=== PATIENT | male | born 1975 | race Caucasian/White ===

== ENCOUNTER 2024-06-04 12:48 | Inpatient (IN) | payer OTHER ==
[2024-06-04 13:05] VITALS: BMI 36.5
[2024-06-04] MEDS ORDERED: BENZOCAINE/MENTHOL (CHLORASEPTIC ) LOZENGE MM PRN (14:27)
[2024-06-04] MEDS ORDERED: LOPERAMIDE HCL 2 MG CAPSULE PO PRN (14:27)
[2024-06-04] MEDS ORDERED: POLYETHYLENE GLYCOL (HEALTHYLAX) 3350 17 GM PACKET PO PRN (14:27)
[2024-06-04] MEDS ORDERED: MAG HYDROX/AL HYDROX/SIMETH 30 ML UNIT-DOSE CUP PO PRN (14:27)
[2024-06-04] MEDS ORDERED: MAGNESIUM HYDROX 2400MG/30ML ORAL SUSPENSION 30 ML CUP PO PRN (14:27)
[2024-06-04] MEDS ORDERED: IBUPROFEN 400 MG TABLET (FP) PO PRN (14:27)
[2024-06-04] MEDS ORDERED: NALOXONE HCL 0.4 MG/ML VIAL IM PRN (14:27)
[2024-06-04] MEDS ORDERED: hydrOXYzine PAMOATE 25 MG CAPSULE (FP) PO PRN (14:27)
[2024-06-04] MEDS ORDERED: guaiFENesin 600 MG TABLET.ER (FP) PO PRN (14:27)
[2024-06-04] MEDS ORDERED: ACETAMINOPHEN 325 MG TABLET (FP) PO PRN (14:27)
[2024-06-04] MEDS ORDERED: BENZONATATE 200 MG CAPSULE PO PRN (14:27)
[2024-06-04] MEDS ORDERED: NALOXONE (NARCAN) HCL 4 MG/0.1 ML SPRAY NS PRN (14:27)
[2024-06-04] MEDS ORDERED: IBUPROFEN 600 MG TABLET (FP) PO PRN (14:27)
[2024-06-04] MEDS ORDERED: PRENATAL VITAMINS W/ FOLIC ACID TABLET (FP) PO ONE (16:07)
[2024-06-04] MEDS: PRENATAL VITAMINS W/ FOLIC ACID TABLET (FP) PO SCH (16:08)
[2024-06-04] MEDS: THIAMINE 100 MG TABLET PO SCH (22:31)
[2024-06-04] MEDS: MELATONIN 5 MG TABLETS PO SCH (22:31)
[2024-06-05] MEDS: NICOTINE 21 MG/24 HOURS TOPICAL PATCH TD SCH (09:50)
[2024-06-05] MEDS: OLANZapine 5 MG TABLET PO SCH (09:51)
[2024-06-05 11:36] LABS: HEMATOCRIT 42.5 % (35.4-49); HEMOGLOBIN 13.9 GM/dL (11.7-16.9); MCH 29.3 pg (25.7-33.7); MCHC 32.8 g/dl (32.0-35.9); MEAN CELL VOLUME 89.3 fl (80-96); MEAN PLT VOLUME 8.1 fl (7.5-11.1); PLATELET COUNT 252 10^3/uL (134-434); RBC 4.77 M/mm3 (4.00-5.60); RDW 15.2 % (11.9-15.9); WHITE BLOOD COUNT 8.3 K/mm3 (4.0-10.0)
[2024-06-05 11:50] LABS: PH,URINE 6.5 (5.0-8.0); URINE APPEARANCE CLEAR; URINE BILIRUBIN NEGATIVE (NEGATIVE); URINE COLOR YELLOW; URINE GLUCOSE (UA) NEGATIVE (NEGATIVE); URINE KETONE NEGATIVE (NEGATIVE); URINE LEUK ESTERASE NEGATIVE (NEGATIVE); URINE NITRITE NEGATIVE (NEGATIVE); URINE PROTEIN NEGATIVE (NEGATIVE); URINE UROBILINOGEN 0.2 mg/dL (0.2-1.0)
[2024-06-05 11:56] LABS: CHLORIDE 106 mmol/L (98-107); POTASSIUM 4.6 mmol/L (3.5-5.1); SODIUM 140 mmol/L (136-145)
[2024-06-05 12:06] LABS: ALBUMIN 3.4 g/dl (3.4-5.0); BLOOD UREA NITROGEN 8.7 mg/dL (7-18); CALCIUM 9.1 mg/dL (8.5-10.1); GLUCOSE,RANDOM 112 mg/dL (74-106)
[2024-06-05 12:07] LABS: ANION GAP 6 mmol/L (4-13); CO2 28 mmol/L (21-32)
[2024-06-05 12:09] LABS: BILIRUBIN,TOTAL 0.7 mg/dL (0.2-1); CREATININE 0.8 mg/dL (0.55-1.3); SGOT/AST 19 U/L (15-37); SGPT/ALT 32 U/L (13-61); TOT PROT 6.5 g/dl (6.4-8.2)
[2024-06-05 12:11] LABS: ALK PHOS 46 U/L (45-117)
[2024-06-05 12:23] LABS: SYPHILIS W/ RPR CONF NON-REACTIVE (NONREACTIVE)
[2024-06-05 12:52] VITALS: TEMP 97.7
[2024-06-05] MEDS: HALOPERIDOL 5 MG TABLET PO SCH (14:08)
[2024-06-05] MEDS ORDERED: PATIENT'S OWN MEDICATION (NON-FORMULARY) (Etanercept [Enbrel] 50 MG/ML Syringe) SQ SCH (14:45)
[2024-06-05] MEDS: OLANZapine 10 MG TABLET PO SCH (21:30)
[2024-06-06 06:52] VITALS: PULSE 84; RESP 18
[2024-06-06 09:08] VITALS: BP 134/80
== END 2024-06-06 14:30 | disposition left against medical advice (07) | DRG 894 ==
LOC: YASAS 12:48 → Y3NR 16:17 → Y3W 06-05 12:33
PROVIDERS: ADMIT Allergy & Immunology; ATTEND Psychiatry & Neurology Pain Medicine
PROC: HZ42ZZZ Group Counseling for Substance Abuse Treatment, Cognitive-Behavioral (ICD-10-PCS; principal; 2024-06-04)
DX: F14.20 Cocaine dependence, uncomplicated (principal); F13.20 Sedative, hypnotic or anxiolytic dependence, uncomplicated; F12.20 Cannabis dependence, uncomplicated; F10.10 Alcohol abuse, uncomplicated; F17.210 Nicotine dependence, cigarettes, uncomplicated; F19.982 Other psychoactive substance use, unspecified with psychoactive substance-induced sleep disorder; F19.94 Other psychoactive substance use, unspecified with psychoactive substance-induced mood disorder; F31.9 Bipolar disorder, unspecified; L40.52 Psoriatic arthritis mutilans; M06.9 Rheumatoid arthritis, unspecified; Z56.0 Unemployment, unspecified
CPT/HCPCS: 36415; 80053; 80305; 80307; 81003; 85027; 86780; 86803; 87522; 87811; 93005; 93010